=== PATIENT | female | born 1970 | race Caucasian/White ===

== ENCOUNTER 2019-06-29 14:24 | Emergency (ER) | payer OTHER, SELFPAY ==
--- NOTE | 2019-06-29 14:28 | ED.GENADULT ---
HPI - General Adult General Chief complaint: Ear Stated complaint: EAR ACHE, SWOLLEN GLANDS Time Seen by Provider: 06/29/19 14:40 Source: patient and RN notes reviewed Mode of arrival: ambulatory Limitations: no limitations History of Present Illness HPI narrative: This patient's had right ear pain without any drainage from the right ear that began 3 days ago. She is also feels that she has swollen glands around the right ear. She has not had any left ear pain or drainage. She has not had any nasal drainage or sore throat. She has had no cough. There is been no fever. The discomfort has been significantly relieved with the use ibuprofen. She also takes tramadol for pain and is used that for this discomfort and feels better. She has not had any dizziness. She has had no decreased hearing. She has not had any dental pain. She notes that if she chews though this does make her right ear more uncomfortable. None of the teeth have been sensitive to heat or cold. She has had no rashes. There is been no nausea, no vomiting, no diarrhea. She has had no vertigo sensation. She has had no hematuria, no dysuria, no pyuria. She has had no known exposure to anyone with respiratory infections that she is aware of. Related Data Home Medications Medication Instructions Recorded Confirmed acyclovir 400 mg PO BID 06/29/19 06/29/19 gabapentin 200 mg PO HS 06/29/19 06/29/19 levonorgestrel-ethinyl estrad 1 tablet PO DAILY 06/29/19 06/29/19 lisinopril-hydrochlorothiazide 1 tablet PO DAILY 06/29/19 06/29/19 tizanidine 4 mg PO DAILY 06/29/19 06/29/19 tramadol 50 mg PO QID 06/29/19 06/29/19 Allergies Allergy/AdvReac Type Severity Reaction Status Date / Time No Known Allergies Allergy Verified 06/29/19 14:41 Review of Systems Review of Systems: Narrative: CONSTITUTIONAL: Denies fever, chills, or sweats. Noncontributory except as pertains to the past medical history and the history the present illness. EYES: Denies visual changes, redness, or discharge. ENT: Denies rhinorrhea, congestion, sore throat, or otalgia. CARDIOVASCULAR: Denies chest pain, palpitations, or edema. RESPIRATORY: Denies cough or dyspnea. GASTROINTESTINAL: Denies abdominal pain, nausea, vomiting, or diarrhea. GENITOURINARY: Denies dysuria or hematuria. SKIN: Denies rash or itching. MUSCULOSKELETAL: Denies back pain, joint pain, or myalgia. NEUROLOGIC: Denies headache, numbness, or weakness. PSYCHIATRIC: Denies anxiety or depression. PMFSH Comments At time of signature, I have reviewed and agree with nursing past medical, surgical, social, and family history.Please see nursing chart for further information. There is no relevant family history pertinent to the presenting complaint. Exam Narrative: Exam Narrative: GENERAL: Well-appearing, well-nourished, and in no acute distress. HEAD: Normocephalic, atraumatic. EYES: PERRLA and EOMI. EARS: Right TM is mildly erythematous, mildly bulging, but not perforated. The canal is clear. Left eardrum and canal are normal. She has negative tragus signs bilaterally. NOSE: Nares clear, no rhinorrhea or epistaxis. THROAT:Mucous membranes moist.Oropharynx normal without erythema or exudates. NECK: Supple. No adenopathy of the neck, supraclavicular, axillary, inguinal areas. RESPIRATORY: No respiratory distress. Airway patent. Respirations non-labored. Clear to auscultation. There are no wheezes, no rales, no retractions, no use of accessory muscles of respirations. Patient's not cyanotic and not dyspneic. HEART: Regular rate and rhythm. No murmur heard. Normal peripheral pulses. ABDOMEN: Soft, nontender, nondistended, normal active bowel sounds.No masses. No rebound or guarding, No organomegaly. There is no CVA pain. No pain McBurney's point. Patient is a negative Brink sign and negative Rovsing sign. There are no pulsatile masses no audible bruits. EXTREMITIES: No clubbing/cyanosis/ edema. Normal strength & range of motion. SKIN: Wa
[2019-06-29 14:35] VITALS: BP 123/72; PULSE 66; RESP 16; TEMP 36.6; O2SAT 99
== END 2019-06-29 14:52 | disposition home or self-care (01) ==
PROVIDERS: Emergency Provider Family Medicine
DX: H66.001 Acute suppurative otitis media without spontaneous rupture of ear drum, right ear (principal); I10 Essential (primary) hypertension
CPT/HCPCS: 99203; G0463

== ENCOUNTER 2019-08-26 14:08 | Emergency (ER) | payer OTHER, SELFPAY ==
--- NOTE | 2019-08-26 14:36 | PC.NURSE ---
1413 financial planning assistant contacted, recommendations received. Pt informed of recommendations and given numbers for [facility]. Pt states she will follow up with [facility] as she had no symptoms requiring immediate attention. States she came to our ED at recommendation of her PCP for Covid testing as she was exposed to a friend on Friday who tested positive. Pt ambulated out of [facility] no distress.
== END 2019-08-26 14:36 | disposition left against medical advice (07) ==
DX: Z53.21 Procedure and treatment not carried out due to patient leaving prior to being seen by health care provider (principal)
CPT/HCPCS: 99199